=== PATIENT | male | born 1995 | race Caucasian/White ===

== ENCOUNTER 2020-11-13 10:11 | Emergency (ER) | payer BC ==
[2020-11-13 10:46] LABS: HEMOGLOBIN 16.4 gm/dl (14.0-17.5); RED BLOOD COUNT 5.53 M/UL (4.20-5.50)
[2020-11-13 11:17] LABS: BUN/CREATININE RATIO 15 (0-10)
[2020-11-13] MEDS ORDERED: ZOFRAN4 MG PO (14:01)
[2020-11-13] MEDS ORDERED: BENTYL 20MG TAB20 MG PO (14:01)
[2020-11-13] MEDS ORDERED: NAPROSYN500 MG PO (14:01)
== END 2020-11-13 14:15 | disposition home or self-care (01) ==
LOC: ER1 10:11
PROVIDERS: Family Medicine
DX: S39.011A Strain of muscle, fascia and tendon of abdomen, initial encounter (principal); I88.0 Nonspecific mesenteric lymphadenitis; X58.XXXA Exposure to other specified factors, initial encounter
CPT/HCPCS: 80053; 81001; 82150; 82550; 82553; 83690; 85025; 96374; 96375; 99284; J1885; J2405; Q9967

== ENCOUNTER → 2020-11-18 | Outpatient (CLI) | payer BC ==
[~2020-11-18] MED LIST: BENTYL 20MG TAB20 MG PO; NAPROSYN500 MG PO; ZOFRAN4 MG PO
[2020-11-19 08:14] LABS: HBSAG SCREEN Negative (Negative); HCV ANTIBODY <0.1 (0.0-0.9); HEP A AB, IGM Negative (Negative); HEPATITIS B SURF AB QUANT 42.9 mIU/mL (Immunity>9.9)
[2020-11-19 10:14] LABS: CERULOPLASMIN 35.2 mg/dL (16.0-31.0)
[2020-11-19 13:14] LABS: ACTIN (SMOOTH MUSCLE) ANTIBODY 8 Units (0-19); MITOCHONDRIAL (M2) ANTIBODY <20.0 Units (0.0-20.0)
[2020-11-19 16:15] LABS: ENDOMYSIAL ANTIBODY IGA Negative (Negative); IMMUNOGLOBULIN A, QN, SERUM 130 mg/dL (90-386); T-TRANSGLUTAMINASE (TTG) IGA <2 U/mL (0-3)
[2020-11-23 14:10] LABS: ALPHA-1-ANTITRYPSIN, SERUM 146 mg/dL (95-164)
== END ==
LOC: LAB 13:55
PROVIDERS: Internal Medicine Gastroenterology
DX: R74.01 Elevation of levels of liver transaminase levels (principal)
CPT/HCPCS: 36415; 82103; 82104; 82390; 82784; 83516; 83540; 83550; 86038; 86317; 86708; 86709; 86803; 87340

== ENCOUNTER → 2020-12-11 | Outpatient (CLI) | payer BC | LOC: EXRD 09:30 | DX: R11.2 Nausea with vomiting, unspecified (principal); K76.0 Fatty (change of) liver, not elsewhere classified | CPT/HCPCS: 76705 ==